=== PATIENT | male | born 1950 | race Caucasian/White ===

== ENCOUNTER → 2019-04-29 | Outpatient (REF) | payer MEDICARE, OTHER | LOC: M LAB REF 15:42 | PROVIDERS: ATTEND Ophthalmology | DX: C44.1122 Basal cell carcinoma of skin of right lower eyelid, including canthus (principal) ==

== ENCOUNTER → 2020-08-09 | Outpatient (CLI) | payer MEDICARE, BC, OTHER ==
--- NOTE | 2020-08-09 12:58 | REP ---
INDICATION: NICOTINE DEPEND. COMPARISON: 10/24/2018 the only prior from an outside institution a standard chest CT after intravenous contrast administration TECHNIQUE: Axial noncontrast images from the thoracic inlet to the upper abdomen using low-dose lung screening technique (LDCT). As per the protocol only lung window images were sent to the read station for interpretation. FINDINGS: There is chronic left apical bullous change. There is a chronic wedge-shaped right middle lobe opacity with air bronchograms. There is cylindrical bronchiectasis with peribronchial thickening status quo. No new abnormal nodules, masses, or opacities have developed. Grossly, the mediastinum and pulmonary brenda are unchanged. Grossly, the imaged upper abdomen and imaged osseous structures are unchanged. There are no pleural or pericardial effusions. IMPRESSION: No significant change from the prior exam. There is chronic right middle lobe collapse with cylindrical bronchiectasis and peribronchial thickening. Lung rads category 2 S exam as per the revised Fleischner society criteria. <Electronically signed by Alex Dejesus > 08/09/20 [id number]
== END ==
LOC: M RAD 09:13
PROVIDERS: ATTEND Internal Medicine Pulmonary Disease
DX: Z12.2 Encounter for screening for malignant neoplasm of respiratory organs (principal); F17.218 Nicotine dependence, cigarettes, with other nicotine-induced disorders

== ENCOUNTER → 2021-07-11 | Outpatient (POV) | payer MEDICARE, BC, OTHER ==
[~2021-07-11] VITALS: Ht 170.2 cm; Wt 89.5 kg
[2021-07-11 12:55] VITALS: BP 164/84
== END ==
LOC: M IRPOV 12:29
PROVIDERS: ATTEND Radiology Diagnostic Radiology
DX: I70.238 Atherosclerosis of native arteries of right leg with ulceration of other part of lower leg (principal); I70.223 Atherosclerosis of native arteries of extremities with rest pain, bilateral legs; L97.819 Non-pressure chronic ulcer of other part of right lower leg with unspecified severity; E11.51 Type 2 diabetes mellitus with diabetic peripheral angiopathy without gangrene; E11.622 Type 2 diabetes mellitus with other skin ulcer; F17.210 Nicotine dependence, cigarettes, uncomplicated

== ENCOUNTER → 2021-07-19 | Outpatient (CLI) | payer MEDICARE, BC, OTHER ==
[~2021-07-19] MED LIST: ACET1TAB55 PO; AMLO25TA PO; BREO1INH INH; DOCU100C16 PO; GABA600T4 PO; INCR1INH INH; ISOVUE-300 61% 50ML VIAL As Ordered ONE; JANU50TA22 PO; LEVO50TA5 PO; LIDOCAINE 1% MDV 20ML VIAL As Ordered ONE; METO50TA7 PO; MIDAZOLAM INJ 2MG/2ML VIAL (J2250 PER 1MG) As Ordered ONE; NOVOINJ3 SC; OMEP1CAP73 PO; PLAV1TAB2 PO; ROSU20TA5 PO; VENTAER INH; ZETI10TA16 PO; diphenhydrAMINE 50MG/ML VIAL (J1200) As Ordered ONE; fentaNYL 100 MCG/2 ML INJECTION As Ordered ONE
[2021-07-19] MEDS: NS 1,000 ML IV SCH (09:26)
[2021-07-19 18:00] VITALS: BP 172/80
== END ==
LOC: M IRPRO 08:39
PROVIDERS: ATTEND Radiology Diagnostic Radiology
DX: I70.223 Atherosclerosis of native arteries of extremities with rest pain, bilateral legs (principal); I70.239 Atherosclerosis of native arteries of right leg with ulceration of unspecified site; L97.919 Non-pressure chronic ulcer of unspecified part of right lower leg with unspecified severity; I70.92 Chronic total occlusion of artery of the extremities
CPT/HCPCS: 36200; 75630; 99152; 99153; C1769; C1887; C1894; J1644; J2250; J3010; Q9967

== ENCOUNTER → 2021-08-02 | Outpatient (CLI) | payer MEDICARE, BC, OTHER ==
[~2021-08-02] MED LIST changes: -ISOVUE-300 61% 50ML VIAL As Ordered ONE; -LIDOCAINE 1% MDV 20ML VIAL As Ordered ONE; -MIDAZOLAM INJ 2MG/2ML VIAL (J2250 PER 1MG) As Ordered ONE; -diphenhydrAMINE 50MG/ML VIAL (J1200) As Ordered ONE; -fentaNYL 100 MCG/2 ML INJECTION As Ordered ONE
== END ==
LOC: M RAD 09:12
PROVIDERS: ATTEND Radiology Diagnostic Radiology
DX: L97.919 Non-pressure chronic ulcer of unspecified part of right lower leg with unspecified severity (principal); M79.604 Pain in right leg

== ENCOUNTER → 2021-11-30 | Outpatient (CLI) | payer MEDICARE, BC, OTHER | LOC: M RAD 09:38 | PROVIDERS: ATTEND Internal Medicine Pulmonary Disease | DX: R91.8 Other nonspecific abnormal finding of lung field (principal); F17.218 Nicotine dependence, cigarettes, with other nicotine-induced disorders ==

== ENCOUNTER → 2022-08-16 | Outpatient (CLI) | payer MEDICARE, BC, OTHER ==
[~2022-08-16] MED LIST changes: +CLOP75TA99 PO; -PLAV1TAB2 PO; -ROSU20TA5 PO; +ROSU20TA61 PO
== END ==
LOC: M RAD 09:33
PROVIDERS: ATTEND Internal Medicine Pulmonary Disease
DX: R91.8 Other nonspecific abnormal finding of lung field (principal)

== ENCOUNTER → 2023-09-19 | Outpatient (CLI) | payer MEDICARE, BC ==
[~2023-09-19] MED LIST changes: +EZET10TA58 PO; -ZETI10TA16 PO
== END ==
LOC: M RAD 09:42
PROVIDERS: ATTEND Internal Medicine Pulmonary Disease
DX: Z12.2 Encounter for screening for malignant neoplasm of respiratory organs (principal); F17.218 Nicotine dependence, cigarettes, with other nicotine-induced disorders

== ENCOUNTER → 2023-10-31 | Outpatient (CLI) | payer MEDICARE, BC ==
[~2023-10-31] MED LIST changes: +GABA-1490 PO; -GABA600T4 PO; +PANT40TA29 PO; -ROSU20TA61 PO; +ROSU20TA86 PO
== END ==
LOC: M RAD 11:59
PROVIDERS: ATTEND Physician Assistant
DX: I70.348 Atherosclerosis of unspecified type of bypass graft(s) of the left leg with ulceration of other part of lower leg (principal); I70.202 Unspecified atherosclerosis of native arteries of extremities, left leg

== ENCOUNTER → 2024-02-11 | Outpatient (CLI) | payer MEDICARE, BC | LOC: M RAD 10:00 | PROVIDERS: ATTEND Internal Medicine Pulmonary Disease | DX: R91.8 Other nonspecific abnormal finding of lung field (principal) ==

== ENCOUNTER 2024-03-11 06:06 | Day surgery (SDC) | payer MEDICARE, BC ==
[~2024-03-11] VITALS: Ht 170.2 cm; Wt 63.8 kg
[~2024-03-11 06:06] MED LIST changes: +ACET-683 PO; +FLOM0.4C39 PO; +FLUT1BLS2 IH; +IRON65TA2 PO; +METF-839 PO; +PRAV40TA2 PO; +RA M10TA PO; +SODI1TAB6 PO
[2024-03-11] MEDS: NS (Normal Saline) 0.9% 1,000 ML IV SCH (07:16)
[2024-03-11] MEDS ORDERED: MIDAZOLAM INJ 2MG/2ML VIAL As Ordered ONE (07:51)
[2024-03-11] MEDS ORDERED: fentaNYL 100 MCG/2 ML INJECTION As Ordered ONE (07:51)
[2024-03-11] MEDS ORDERED: SUGAMMADEX SODIUM 500 MG/5 ML VIAL (BRIDION) As Ordered ONE (07:51)
[2024-03-11] MEDS ORDERED: propofoL 200 MG/20 ML VIAL As Ordered ONE (07:51)
[2024-03-11] MEDS ORDERED: LIDOCAINE 2% 100MG/5ML SDV (FOR ANES.) As Ordered ONE (07:51)
[2024-03-11] MEDS ORDERED: ONDANSETRON 4MG 2ML VIAL As Ordered ONE (07:51)
[2024-03-11] MEDS ORDERED: ROCURONIUM BROMIDE 50MG/5ML VIAL As Ordered ONE (07:51)
[2024-03-11] MEDS: CETACAINE SPRAY 5GM As Ordered ONE (07:58)
[2024-03-11] MEDS: THROMBIN 5,000 UNITS VIAL As Ordered ONE (07:58)
[2024-03-11] MEDS: EPINEPHrine 1MG/10ML SYRINGE 1.5IN As Ordered ONE (07:59)
[2024-03-11] MEDS: LIDOCAINE VISCOUS 2% SOLN 15ML UDC As Ordered ONE (07:59)
[2024-03-11] MEDS: PHENYLEPHRINE 0.5% NASAL SPRAY 15 ML As Ordered ONE (07:59)
[2024-03-11] MEDS: LIDOCAINE 1% MDV 20ML VIAL As Ordered ONE (07:59)
[2024-03-11 08:45] VITALS: BP 131/60; TEMP 97.3; O2SAT 96
== END 2024-03-11 09:25 | disposition home or self-care (01) ==
LOC: M SDC 06:06
PROVIDERS: ATTEND Internal Medicine Pulmonary Disease
DX: J44.89 Other specified chronic obstructive pulmonary disease (principal); R91.8 Other nonspecific abnormal finding of lung field; J98.19 Other pulmonary collapse; J98.4 Other disorders of lung; I25.10 Atherosclerotic heart disease of native coronary artery without angina pectoris; I10 Essential (primary) hypertension; E11.9 Type 2 diabetes mellitus without complications; Z86.73 Personal history of transient ischemic attack (TIA), and cerebral infarction without residual deficits; Z88.6 Allergy status to analgesic agent; Z79.899 Other long term (current) drug therapy; F17.210 Nicotine dependence, cigarettes, uncomplicated
CPT/HCPCS: 31622; J1100; J2250; J2405; J3010

== ENCOUNTER → 2024-09-15 | Outpatient (CLI) | payer MEDICARE, BC ==
[~2024-09-15] MED LIST changes: -FLOM0.4C39 PO; -PRAV40TA2 PO; +PRAV40TA85 PO; +TAMS-18 PO
== END ==
LOC: M RAD 12:48
PROVIDERS: ATTEND Internal Medicine Pulmonary Disease
DX: R91.8 Other nonspecific abnormal finding of lung field (principal)